=== PATIENT | male | born 1995 | race Caucasian/White ===

== ENCOUNTER 2025-03-17 14:24 | Emergency (ER) | payer SELFPAY ==
[2025-03-17 14:54] VITALS: BP 133/77; PULSE 90; RESP 20; TEMP 98.7; BMI 25.8
[2025-03-17] MEDS: ACETAMINOPHEN 500 MG TABLET (FP) PO ONE (14:59)
[2025-03-17] MEDS ORDERED: ACETAMINOPHEN 500 MG TABLET (FP) ONE (14:59)
== END 2025-03-17 16:03 | disposition left against medical advice (07) ==
LOC: FER 14:24
DX: N50.811 Right testicular pain (principal); N50.812 Left testicular pain
CPT/HCPCS: 76870-TC; 99284-25